=== PATIENT | female | born 1965 | race Caucasian/White ===

== ENCOUNTER → 2017-09-06 | Outpatient (CLI) | payer OTHER, BC ==
[~2017-09-06] MED LIST: AMAN100C18 PO; CHOL100010 PO; GABA-112 PO; GADAVIST IV PRN; PEGI15IN
--- NOTE | 2017-09-06 19:35 | DIAGNOSTIC IMAGING REPORT ---
BRAIN COMBO FOR MS CLINICAL HISTORY: Multiple sclerosis follow-up. Bilateral leg weakness. COMPARISON STUDY: MRI of the brain November 06, 2016. TECHNIQUE: Utilizing a 1.5 Emma magnet and dedicated coil, multiplanar, multi echo imaging of the brain was performed pre and postcontrast administration according to the multiple sclerosis protocol. Injection of 4.9 cc of Gadavist IV was uneventful. FINDINGS: There are no areas of restricted diffusion. No acute intracranial hemorrhage, midline shift or mass effect is present. Ventricular system is normal. Basilar cisterns are patent. There are no extra-axial collections. Flow-voids for the major intracranial vessels are present. No intracranial mass or pathologic enhancement is present. A few white matter T2 hyperintense foci are unchanged as MRI of November 06, 2016. The largest is a 9 mm right frontal lobe focus shown on image 99 of 224 on the axial FLAIR reconstruction. A few additional foci are unchanged. There are no new areas of signal abnormality. Calvarial signal is maintained. Orbits and sinuses are unremarkable. IMPRESSION: 1. No acute intracranial findings. 2. No change in several white matter T2 hyperintense foci since MRI of November 06, 2016. No new areas of demyelination. No evidence for active demyelination by MRI. Electronically signed by: Darius Lozada M.D. 09/06/2017 7:33 PM Dictated Date/Time: 09/06/2017 7:28 PM
--- NOTE | 2017-09-06 19:39 | DIAGNOSTIC IMAGING REPORT ---
MRI OF THE THORACIC SPINE WITH AND WITHOUT CONTRAST CLINICAL HISTORY: Multiple sclerosis. Change in bladder function. COMPARISON STUDY: MRI of the thoracic spine June 11, 2014. TECHNIQUE: Utilizing a 1.5 Emma magnet and dedicated coil, multiplanar, multiecho imaging of the thoracic spine was performed pre and postcontrast administration. Injection of 4.9 cc of Gadavist IV was uneventful. FINDINGS: Alignment of the thoracic spine is anatomic. Vertebral body heights are maintained. There is no marrow edema or marrow replacement within the thoracic spine. No intracanalicular mass or fluid collection is present. Thoracic cord signal and caliber are normal. No disc herniation is present. Central canal and neural foramen are patent. Paravertebral soft tissues are unremarkable. IMPRESSION: Normal MRI of the thoracic spine. Normal thoracic cord signal and caliber. Electronically signed by: Darius Lozada M.D. 09/06/2017 7:38 PM Dictated Date/Time: 09/06/2017 7:34 PM
== END | disposition home or self-care (01) ==
LOC: C.MRI 16:41
PROVIDERS: ATTEND Psychiatry & Neurology Neurology
DX: G35 Multiple sclerosis (principal)

== ENCOUNTER → 2017-11-04 | Outpatient (CLI) | payer OTHER, BC ==
[~2017-11-04] MED LIST changes: -CHOL100010 PO; -GADAVIST IV PRN
[2017-11-04 18:22] LABS: BLOOD UREA NITROGEN 11 mg/dl (7-18); BUN/CREATININE RATIO 10.9 (10-20); CALCIUM 8.7 mg/dl (8.5-10.1); CARBON DIOXIDE 28 mmol/L (21-32); CHLORIDE 101 mmol/L (98-107); CREATININE 1.04 mg/dl (0.60-1.20); GLUCOSE 79 mg/dl (70-99); POTASSIUM 3.6 mmol/L (3.5-5.1); SODIUM 136 mmol/L (136-145)
== END | disposition home or self-care (01) ==
LOC: C.LABPBG 11:22
PROVIDERS: ATTEND Physician Assistant
DX: G35 Multiple sclerosis (principal)

== ENCOUNTER → 2018-03-14 | Outpatient (CLI) | payer OTHER, BC ==
[2018-03-14 12:11] LABS: HEMATOCRIT 36.1 % (37-47); HEMOGLOBIN 12.5 g/dL (12.0-16.0); MEAN CELL VOLUME 84.9 fL (80-100); MEAN CORPUSCULAR HEMOGLOBIN 29.4 pg (25-34); MEAN CORPUSCULAR HGB CONC 34.6 g/dl (32-36); MEAN PLATELET VOLUME 9.8 fL (7.4-10.4); PLATELET COUNT 152 K/uL (130-400); RED CELL DISTRIBUTION WIDTH CV 12.6 % (11.5-14.5); RED CELL DISTRIBUTION WIDTH SD 38.7 fL (36.4-46.3); WHITE BLOOD COUNT 3.68 K/uL (4.8-10.8)
[2018-03-14 12:44] LABS: ALBUMIN 3.9 gm/dl (3.4-5.0); ALT/SGPT 28 U/L (12-78); AST/SGOT 23 U/L (15-37); BASO % 0.3 %; BASO ABS # 0.01 K/uL (0-0.2); BLOOD UREA NITROGEN 9 mg/dl (7-18); CALCIUM 8.6 mg/dl (8.5-10.1); CARBON DIOXIDE 27 mmol/L (21-32); EOS % 1.9 %; EOS ABS # 0.07 K/uL (0-0.5); GLUCOSE 85 mg/dl (70-99); LYMPH % 50.8 %; LYMPH ABS # 1.87 K/uL (1.2-3.4); MONO % 7.9 %; MONO ABS # 0.29 K/uL (0.11-0.59); NEUT % 39.1 %; NEUT ABS # 1.44 K/uL (1.4-6.5); SODIUM 139 mmol/L (136-145)
[2018-03-14 12:47] LABS: ALKALINE PHOSPHATASE 62 U/L (45-117); TOTAL PROTEIN 7.4 gm/dl (6.4-8.2)
== END | disposition home or self-care (01) ==
LOC: C.LAB 11:24
PROVIDERS: ATTEND Psychiatry & Neurology Neurology
DX: G35 Multiple sclerosis (principal)